=== PATIENT | male | born 1975 | race Caucasian/White ===

== ENCOUNTER 2024-12-28 14:28 | Emergency (ER) | payer OTHER, BC ==
[~2024-12-28] VITALS: Ht 182.9 cm; Wt 127.5 kg
[2024-12-28] MEDS ORDERED: VENTOLIN HFA18 GM (17:39)
[2024-12-28] MEDS ORDERED: ACETAMINOPHEN 500 MG TAB PO ONE (18:00)
[2024-12-28] MEDS ORDERED: KETOROLAC TROMETHAMINE 60 MG/2 ML VIAL IM ONE (20:00)
[2024-12-28] MEDS ORDERED: CELEBREX100 MG PO (20:01)
[2024-12-28 21:10] VITALS: BP 137/88
== END 2024-12-28 21:00 | disposition home or self-care (01) ==
LOC: ED 14:28
DX: S90.32XA Contusion of left foot, initial encounter (principal); W11.XXXA Fall on and from ladder, initial encounter
CPT/HCPCS: 73630; 73650; 96372; 99283; A9270; J1885